=== PATIENT | female | born 1960 | race Caucasian/White ===

== ENCOUNTER 2016-08-08 14:52 | Emergency (ER) | payer OTHER ==
[2016-08-08] MEDS ORDERED: IPRATROPIUM/ALBUTEROL 3 ML DEYVIAL ONE (15:42)
[2016-08-08 16:00] VITALS: RESP 16; TEMP 97.9
[2016-08-08] MEDS ORDERED: predniSONE 20 MG TAB PO ONE (16:16)
[2016-08-08] MEDS ORDERED: IPRATROPIUM/ALBUTEROL 3 ML DEYVIAL IH ONE ×2 (16:16→16:51)
--- NOTE | 2016-08-08 16:21 | UCPHY ---
H & P Time Seen by Provider: 08/08/16 16:17 Patient Type: New HPI/ROS: HPI: 56-year-old female presents to urgent care with chief concern productive cough, shortness of breath, nasal congestion, facial and tooth pain. Symptoms onset 5 days ago. Reports shortness of breath that increased over the past 2 days associated with productive yellow cough, chills, and myalgias. Has a history of asthma. Uses her home nebulizer every 4-6 hours. No history of pneumonia. Received a flu shot this year. Never smoker ROS:10 point review of systems is negative other than as stated in HPI Past Medical/Surgical History: Restless leg Asthma Social History: Smoking Status: Never smoked Physical Exam: Vital signs reviewed by me General: Awake, alert, calm, cooperative. No acute distress. Head: Atraumatic. EENT: Conjuctiva mildly injected. TMs intact, without redness or bulging. Nasal mucosa is erythematous with moderate purulent discharge. Pharynx mildly erythematous. Uvula midline. No tonsillar abscess or exudates. Maxillary tenderness to percussion bilaterally. Respiratory: Breathing unlabored. Lungs with few scattered rhonchi and expiratory wheezes throughout. No rales. CV: Heart rate regular. S1-S2 present. No murmur. GI: Abdomen soft, nontender. Bowel sounds positive x4 quadrants. : Deferred Skin: Warm, dry, intact. No rashes present. Capillary refill brisk. Musculoskeletal: Full ROM all extremities. Neuro: Alert oriented x3. Strength equal in all 4 extremities. Constitutional: Initial Vital Signs Temperature (C) 36.6 C 08/08/16 15:40 Heart Rate 79 08/08/16 15:40 Respiratory Rate 16 08/08/16 15:40 Blood Pressure 105/77 08/08/16 15:40 O2 Sat (%) 91 L 08/08/16 15:40 O2 Delivery Mode Room Air Allergies/Adverse Reactions: ropinirole HCl [From Requip] Allergy (Verified 08/08/16 15:48) Home Medications: Medication Instructions Recorded Albuterol 5 mg/ml INH 08/08/16 Albuterol Hfa Anes Only 08/08/16 Cefdinir [Omnicef (*)] 300 mg PO BID #20 cap 08/08/16 Clonazepam 03/23/17 Med For Restless Leg 08/08/16 predniSONE 20 mg PO DAILY #15 tablet 08/08/16 Medical Decision Making - Diagnostics Imaging: PA and Lateral Chest Indication: Shortness of breath and cough. Evaluate for pneumonia. Comparison: None Findings: A right apical nodular opacity overlies the mid shaft of the clavicle. The lungs are otherwise well aerated and clear. The heart size is normal. No lobar airspace consolidation, edema or effusion. The heart size is normal. A small hiatal hernia overlies the base of the heart. Impression: 1. Indeterminate right upper lobe pulmonary nodule. 2. No lobar pneumonia or effusion. 3. Small hiatal hernia. Recommendation: Follow-up noncontrast chest CT. Findings discussed with Nathaly Finnegan NP at 08/08/2016 16:15. ED Course/Re-evaluation: 1622: 56-year-old female presents to emergency department with chief concern shortness of breath, productive cough, facial and tooth pain associated with increased nasal congestion. She is afebrile. She is 91% on room air. Chest x- ray is negative for evidence of pneumonia. There is questionable pulmonary nodule right upper lobe for which she has been counseled and has been advised she will need a noncontrast CT 2 weeks after treatment. A copy of her chest x- ray was provided on CD for her primary care provider. Vital signs are stable. After 1 DuoNeb she is moderately improved. 2nd DuoNeb given. After 2nd DuoNeb , lungs significantly improved. Patient feeling better. 60 mg prednisone given here. Flu swab negative. 1720: After 2nd DuoNeb, lungs clear. Patient feels much better. Oxygen saturation on room air 96%. Discharged with a copy of her x-ray. Vitals stable. Differential Diagnosis: Differential diagnosis includes but is not limited to URI including influenza and bronchitis, asthma exacerbation, pneumonia, sinusitis - Data Points Laboratory Results: 08/08/16 16:15 Influenza Typ A,B (DFA) NEGATIVE FOR FLU (NEGATIVE) Medications Given: Discontinued Medications Albuterol/Ipratropium (Duoneb) 3 ml IH EDNOW ONE Stop: 08/08/16 16:17 Last Admin: 08/08/16 15:55 Dose: 3 ml Albuterol/Ipratropium (Duoneb) 3 ml IH EDNOW ONE Stop: 08/08/16 16:52 Last Admin: 08/08/16 16:59 Dose: 3 ml Prednisone (Prednisone) 60 mg PO EDNOW ONE Stop: 08/08/16 16:17 Last Admin: 08/08/16 16:50 Dose: 60 mg Departure - Departure Disposition: Home, Routine, Self-Care Clinical Impression: Asthma exacerbation Upper respiratory infection Qualifiers: URI type: unspecified viral URI Qualified Code(s): J06.9 - Acute upper respiratory infection, unspecified Sinusitis Qualifiers: Sinusitis location: maxillary Chronicity: acute Condition: Good Instructions: Asthma (ED), Sinusitis (ED), Upper Respiratory Infection (ED) Additional Instructions: Plan: Follow up with primary care tomorrow or Friday for recheck without fail--When you call to schedule appointment, please let the office know you are an "ER follow up" appointment" Antibiotics as prescribed for 10 days Use Flonase (nasal steroid) 2 puffs in each nostril first thing in the morning while symptoms persist. [id number] cough and cold medicine as needed Use your nebulizer every 4-6 hours Prednisone taper as prescribed After completion of your antibiotic, you will need a follow-up non contrast chest CT scan in 2 weeks to reassess nodule seen right upper lobe as discussed, take this paperwork as well as the x-ray on CD for your primary care provider at follow-up If symptoms worsen go to emergency department promptly for recheck Referrals: Tamara Guevara PA [Primary Care Provider] - As per Instructions Prescriptions: Cefdinir [Omnicef (*)] 300 mg PO BID #20 cap predniSONE 20 mg PO DAILY #15 tablet - PQRS PQRS Measurement: Not applicable
[2016-08-08 17:43] VITALS: BP 113/71; PULSE 73; O2SAT 95
== END 2016-08-08 17:35 | disposition home or self-care (01) ==
LOC: CED 14:52
DX: J45.901 Unspecified asthma with (acute) exacerbation (principal); J06.9 Acute upper respiratory infection, unspecified; J01.00 Acute maxillary sinusitis, unspecified; R91.1 Solitary pulmonary nodule; K44.9 Diaphragmatic hernia without obstruction or gangrene
CPT/HCPCS: 71020-PO; 87400-PO; 99203-PO; G0463-PO

== ENCOUNTER → 2016-11-01 | Outpatient (CLI) | payer OTHER | LOC: CIMAGING 09:17 | PROVIDERS: ATTEND Family Medicine | DX: J40 Bronchitis, not specified as acute or chronic (principal); R91.1 Solitary pulmonary nodule; K44.9 Diaphragmatic hernia without obstruction or gangrene | CPT/HCPCS: 71250-PO ==